=== PATIENT | female | born 1985 | race Two or more races ===

== ENCOUNTER 2025-10-16 17:17 | Emergency (ER) | payer MEDICAID, SELFPAY ==
[2025-10-16 17:18] VITALS: BMI 25.6
[2025-10-16 17:23] VITALS: BP 156/107; PULSE 121; RESP 18; TEMP 36.7; O2SAT 95
[2025-10-16 18:31] VITALS: BP 146/99; PULSE 105; RESP 13; TEMP 36.7; O2SAT 96
--- NOTE | 2025-10-16 18:36 | EKG_ITS ---
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
[2025-10-16 19:07] LABS: Lactate (Lactic Acid) 1.9 mMol/L (0.4-2.0)
[2025-10-16 19:08] LABS: Basophils # (Auto) 0.0 Thou/mm3 (0.0-0.2); Basophils % (Auto) 0 % (0-2.5); Eosinophils # (Auto) 0.1 Thou/mm3 (0.0-0.5); Eosinophils % (Auto) 2 % (0-10); Hematocrit 41.8 % (36.0-46.0); Hemoglobin 14.7 g/dL (12.0-16.0); Immature Granulocytes Auto 0.01 Thou/mm3 (0.00-0.00); Lymphocytes # (Auto) 1.2 Thou/mm3 (1.0-4.8); Lymphocytes % (Auto) 18 % (10-50); Mean Corpuscular HGB Conc 35.2 g/dl (31.0-37.0); Mean Corpuscular Hemoglobin 30.5 pg (25.0-35.0); Mean Corpuscular Volume 87 fL (80-100); Monocytes # (Auto) 0.5 Thou/mm3 (0.0-0.8); Monocytes % (Auto) 8 % (0-12); Neutrophils # (Auto) 4.9 Thou/mm3 (1.8-7.7); Neutrophils % (Auto) 72 % (37-80); Nucleated Red Blood Cell # 0.00 Thou/mm3 (0.00-0.00); Nucleated Red Blood Cell % 0 /100 WBC (0); Platelet Count 259 Thou/mm3 (140-440); RDW Standard Deviation 38.1 fL (36.4-46.3); Red Blood Count 4.82 Miln/mm3 (4.00-5.20); White Blood Count 6.8 Thou/mm3 (3.6-11.0)
[2025-10-16] MEDS: INSULIN NPH 1 UNIT/0.01 ML (PER UNIT) 10 UNIT SC (19:08)
[2025-10-16 19:30] LABS: B-Type Natriuretic Peptide 23 pg/mL (0-100)
[2025-10-16 19:31] LABS: Anion Gap 8 (7-16); BUN/Creatinine Ratio 14 Ratio (12-20); Blood Urea Nitrogen 11 mg/dL (9-23); Calcium 9.1 mg/dL (8.3-10.6); Carbon Dioxide 25.1 mMol/L (20.0-31.0); Chloride 101 mMol/L (98-107); Creatinine (Component) 0.8 mg/dL (0.6-1.3); Estimated Creatinine Clearance 81.0 mL/min (>60); Glucose 261 mg/dL (74-106); Lipase 28 U/L (12-53); Osmolality,Calculated 276 (275-295); Potassium 4.4 mMol/L (3.4-5.1); Sodium 134 mMol/L (136-145); Troponin I < 0.002 ng/mL (0.0-0.045); eGFR > 60 See Note
[2025-10-16] MEDS: SODIUM CHLORIDE 0.9% 1000 ML 1,000 ML 999 ML IV (19:31)
[2025-10-16 19:33] VITALS: BP 125/92; PULSE 99; RESP 27; TEMP 36.7; O2SAT 96
[2025-10-16 20:31] VITALS: BP 131/93; PULSE 95; RESP 25; TEMP 36.8; O2SAT 98
[2025-10-16 21:26] LABS: Collection Type, Urine Clean Catch
[2025-10-16 21:33] LABS: Bilirubin,Urine Negative (Negative); Blood,Urine 3+ (Negative); Clarity,Urine Turbid (Clear/Hazy); Color,Urine Red (Lt Yel-Yel); Glucose, Urine 4+ (Negative); Ketones,Urine Negative (Negative); Leukocyte Esterase,Urine Positive (Negative); Nitrite,Urine Negative (Negative); PH,Urine 7.0 (5.0-7.0); Protein,Urine 1+ (Neg - Trace); RBC,Urine 6358 /hpf (0-3); Specific Gravity,Urine 1.012 (1.001-1.035); Squamous Epithelial Cell,Urine 8 /hpf (0-5); Urobilinogen,Urine Negative mg/dL (0.0-1.0); WBC,Urine 40 /hpf (0-5)
[2025-10-16 23:00] VITALS: BP 123/91; PULSE 90; RESP 23; TEMP 36.8; O2SAT 97
--- NOTE | 2025-10-16 23:48 | EDNOTE_ITS ---
ED Syncope RME/HPI General Chief Complaint: Syncope / Near Syncope Stated Complaint: SYNCOPE Time Seen by Provider: 10/16/25 18:30 Arrival date/time: 10/16/25 17:17 RME / HPI RME / HPI narrative: See [facility] for Dr. Patel's HPI Documentation. Related Data Previous Rx's ?Medication ?Instructions ?Recorded Hydrocodone/Acetaminophen * (NORCO 1 tab PO QDAY PRN P AIN #12 tabs 07/06/17 5/325 *) cefdinir 300 mg capsule 300 mg PO BID 5 days #10 cap s 10/17/25 fluconazole 200 mg tablet 200 mg PO QDAY 5 days #5 tab s 10/17/25 metformin 1,000 mg tablet,extended 1,000 mg PO BID #60 tabs 10/17/25 release 24hr (osmotic) Allergies Allergy/AdvReac Type Severity Reaction Status Date / Time NKA* Allergy Uncoded 10/16/25 17:20 Review of Systems Review of Systems Systems Reviewed: All systems reviewed, normal except as documented Past Medical History Social History SMOKING STATUS: Never smoker ED Exam Narrative Physical exam: See [facility] for Dr. Patel's Physical Exam Documentation. Course Quality Measures none Orders Category Date Time Status Bedside COVID-19 Antigen Test NOW Care 10/16/25 23:50 Completed Bedside Influenza A&B Antigen Test NOW Care 10/16/25 23:[address] Screening NOW Care 10/16/25 23:51 Completed EKG (ED ONLY) *Do not use* NOW Care 10/16/25 18:36 Completed IV [Insert IV] NOW Care 10/16/25 18:[address] abdomen pelvis w con Stat Exams 10/16/25 23:[address] angio chest Stat Exams 10/16/25 23:[address] head/brain wo con Stat Exams 10/16/25 23:51 Completed EKG (ED Only) Stat Exams 10/16/25 18:36 Draft US gall bladder Stat Exams 10/17/25 00:51 Completed US pelvic complete Stat Exams 10/17/25 00:50 Completed XR chest 1V portable Stat Exams 10/16/25 23:51 Completed Alcohol, Blood Medical Stat Lab 10/16/25 23:52 Completed Amylase Stat Lab 10/16/25 23:52 Completed BMP [Basic Metabolic Panel] Stat Lab 10/16/25 18:52 Completed BNP [B-Type Natriuretic Peptide] Stat Lab 10/16/25 18:52 Completed Beta Hydroxybutyrate Stat Lab 10/16/25 23:52 Completed Blood Culture (Lab) Stat Lab 10/16/25 23:52 Received CBC Stat Lab 10/16/25 18:52 Completed CRP [C-Reactive Protein] Stat Lab 10/16/25 23:52 Completed D-Dimer Stat Lab 10/16/25 23:53 Completed ESR [Sed Rate (ESR)] Stat Lab 10/16/25 23:53 Completed HCG,Qualitative Serum Stat Lab 10/16/25 23:52 Completed Hemoglobin A1C [Glycohemoglobin w (eAG)] Stat Lab 10/16/25 23:53 Completed Lactate (Lactic Acid) Stat Lab 10/16/25 18:52 Completed Lactate (Lactic Acid) Stat Lab 10/16/25 23:53 Completed Lipase Stat Lab 10/16/25 18:52 Completed Liver Panel Stat Lab 10/16/25 23:52 Completed Magnesium Stat Lab 10/16/25 23:52 Completed Procalcitonin Stat Lab 10/17/25 00:56 Completed TSH [Thyroid Stimulating Hormone] Stat Lab 10/16/25 23:52 Completed Troponin I Stat Lab 10/16/25 18:52 Completed UA [Urinalysis] Stat Lab 10/16/25 21:19 Completed VBG [Venous Blood Gas] Stat Lab 10/16/25 23:53 Completed Fluconazole [Diflucan] Med 10/17/25 04:04 Discontinued 400 mg PO X1 ONE Insulin Human NPH [NovoLIN N] Med 10/16/25 18:37 Discontinued 10 unit SC X1 ONE Ondansetron Odt [Zofran Odt] Med 10/16/25 18:35 Discontinued 4 mg PO X1 ONE Sodium Chloride 0.9% 1000 ml [Ns] 1,000 ml Med 10/16/25 18:35 Discontinued IV 999 mls/hr cefTRIAXone/D5w 1gm IV premix [Rocephin/D5w 1gm IV Med 10/17/25 03:55 Discontinued premix] 1 g in 50 ml IV X1 Vital Signs Vital signs: Vital Signs Temperature 98.1 F 10/16/25 17:23 Pulse Rate 121 H 10/16/25 17:23 Respiratory Rate 18 10/16/25 17:23 Blood Pressure 156/107 H 10/16/25 17:23 Pulse Oximetry (%) 95 10/16/25 17:23 Oxygen Delivery Method Room Air 10/16/25 17:23 Syncope MDM Narrative MDM Narrative:: This section includes all my notes and documentations, including HPI, PE, and ED course. 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 She felt lightheaded and sat herself down on the floor. Children found her unresponsive and brought her here for care. Currently, patient reports completely normal. No headache or dizziness. No speech or vision impairment. No loss of power in the arms or legs. No chest pain. No other complaints. ROS: All negative except as documented in HPI. Physical Exam: General:? Alert and oriented.? No acute distress.? Eyes:? Conjunctivae and lids clear.? EOMI.? PERRL. ENT:? No signs of head trauma. Neck:? Supple.? No tenderness. Heart:? RRR. Lungs:? No respiratory distress.? Good air movement.? No rhonchi, wheezing, rales.? Chest:? No tenderness. Abdomen:? Soft with equivocal tenderness, difficult to localize.? Normal bowel sounds.? No distension.? No rebound or guarding.? Back:? No tenderness.? Skin:? Warm and dry.? Neuro:? Alert and oriented X 3.? Cranial Nerves II-XII grossly intact.? No herb pheral motor deficits. Musculoskeletal:? All major joints and bones are not tender with no limited ROM. I reviewed all diagnostic test results: My interpretation of the EKG is sinus rhythm. My interpretation of the chest x-ray is: NAD. My review of the Head/Brain CT report is: No acute findings. My review of the Chest CTA report is no PE. My review of the Abdomen/Pelvis CT report is uterine mass. My review of the Pelvic US report is uterine mass. My review of the Gallbladder US report is: Cholelithiasis. Blood tests remarkable for Glu 261, HgbA1C 10.1%. UA showed leukocyte esterase, 6358 RBC, and 40 WBC. At this point, diagnoses include: Syncope with unclear etiology UTI Diabetes Fibroids Gallstones Treatment here included: IVF Regular insulin 10 units SC Zofran 4 mg Rocephin 1 G IV Diflucan 400 mg PO Patient remained stable. Recommended more outpatient workup. Based on my best medical judgment, made decision no further evaluation or treatment indicated at this time. Patient understands and agrees to the discharge instructions customized and printed, see below. Discharge instructions from Dr. Patel: 1. After extensive evaluation, exact cause of your passing out was not deter mined. But there is no immediately life-threatening condition. Such as stroke or brain tumor or heart attack or pulmonary embolism (blood clots in your lungs) or pneumothorax (collapsed lung). 2. You have many significant diagnoses. Including diabetes and urine infection and uterus tumor (fibroids) and gallstones. See attached handouts. 3. Take metformin for your diabetes. 4. Take Cefdinir and Diflucan for urine infection. For good hydration, increase oral fluid and maintain clear urine. If dark or yellow, increase oral fluid. 5. We need to see assistant clinical nurse manager for your uterus tumor. Because it's very large and compressing on other organs. And it can cause severe bleeding. 6. You need gallbladder to help digest fatty foods. So avoid all fatty and oily and greasy and buttery and dairy foods.? This usually means take out and fast food restaurants. 7. See a private doctor on 10/18/2025 for recheck and further care. Ask to review all test results and official radiology reports, to make sure you receive all necessary follow-ups and monitoring, including final urine culture results. Ask for referrals to see assistant clinical nurse manager (for fibroids) and general surgeon (for gallstones). Ask for help with good management of your diabetes. To make sure there is no serious underlying heart condition, ask to help you get more tests for your heart that cannot be done here in the ER. Such as Holter Monitor (cardiac monitoring at home from a day to even a month), heart stress test (on treadmill or with medication), echocardiogram (imaging of your heart structures), heart catherization (checking for blockages in your heart arteries), and a referral to see a Appliance Adjuster. Ask for MRI imaging of the brain and referral to see neurologist (to figure out the cause of passing out). 8. Seek immediate medical care with worsening or with any concerns. Prateek Patel MD Patient data External records reviewed:: [facility] previous records (No prior ED records available for review) Clinical information provided by:: patient Social determinants that could affect healthcare access:: none Patient has the following chronic illnesses:: None reported How is presenting disease/condition affected by chronic disease/condition?: no chronic disease Evaluation data The following diagnostics were reviewed and interpreted by me:: lab results, radiology exam(s) and EKG tracing(s) (My interpretation of the EKG: NSR (103 bpm) with no ST-T changes. ) Lab and/or radiology exams considered but not ordered:: None Interpretation Summary: I reviewed all diagnostic test results: My interpretation of the EKG is sinus rhythm. My interpretation of the chest x-ray is: NAD. My review of the Head/Brain CT report is: No acute findings. My review of the Chest CTA report is no PE. My review of the Abdomen/Pelvis CT report is uterine mass. My review of the Pelvic US report is uterine mass. My review of the Gallbladder US report is: Cholelithiasis. Blood tests remarkable for Glu 261, HgbA1C 10.1%. UA showed leukocyte esterase, 6358 RBC, and 40 WBC. Medications / Prescriptions Medications or Prescriptions considered but not ordered:: None Medication administrations:: Medication Administration History Discontinued Medications Fluconazole (Fluconazole 100 Mg Tablet) 400 mg PO X1 ONE Stop: 10/17/25 04:05 Last Admin: 10/17/25 04:34 Dose: 400 mg Documented By: CVL Sodium Chloride (Ns) 1,000 mls @ 999 mls/hr IV .Q1H1M ONE Stop: 10/16/25 19:35 Last Infusion: 10/16/25 20:32 Dose: Infused Documented By: Admin: 10/16/25 19:31 Dose: 999 mls/hr Documented By: AC Ceftriaxone Sodium/Dextrose (Rocephin/D5w 1gm Iv Premix) 1 g in 50 mls @ 100 mls/hr IV X1 ONE Stop: 10/17/25 04:24 Last Infusion: 10/17/25 04:33 Dose: Infused Documented By: Admin: 10/17/25 04:01 Dose: 100 mls/hr Documented By: CVL Insulin Human NPH (Insulin Nph 1 Unit/0.01 Ml (Per Unit)) 10 unit SC X1 ONE Stop: 10/16/25 18:38 Last Admin: 10/16/25 19:08 Dose: 10 unit Documented By: ANDREA Co-signed By: BUTCH Ondansetron HCl (Ondansetron Odt 4 Mg Tabrap) 4 mg PO X1 ONE; Protocol Stop: 10/16/25 18:36 Last Admin: 10/16/25 19:07 Dose: Not Given Documented By: ANDREA Non-Admin Reason: Patient Refused Treatment here included: IVF Regular insulin 10 units SC Zofran 4 mg Rocephin 1 G IV Diflucan 400 mg PO Consultations Consultation(s) initiated? (list below): No Diagnosis Syncope Differential Diagnosis: syncope due to orthostatic hypotension, vasovagal syncope, pulmonary embolism, dehydration and other (Hyperglycemia) Most likely diagnosis given after review of the tests above:: Syncope UTI (lower urinary tract infection) Diabetes Fibroids Gallstones Admission Indicated Admission indicated?: not indicated Explain why admission is indicated or not indicated:: With significant improvement and no condition needing emergent intervention, there was no indication for admission. Admission Request Was there a request for admission?: No Disposition Plan Disposition Plan: Discharge Discharge Attestation Discharge Attestation: The patient and all family members were given an opportunity to ask questions and understood the discharge instructions. Discharge instructions specifically effects, indications for sooner follow up or return to the emergency department, and the expected course of current diagnosis. Patient condition: Stable Discharge Plan Plan Patient Disposition: HOME (Self Care) Prescriptions/Referrals Prescriptions/Med Rec: New cefdinir 300 mg capsule 300 mg PO BID 5 Days Qty: 10 0RF metformin 1,000 mg tablet extended release 24hr 1,000 mg PO BID Qty: 60 0RF fluconazole 200 mg tablet 200 mg PO QDAY 5 Days Qty: 5 0RF No Action Hydrocodone/Acetaminophen * (NORCO 5/325 *) 1 TAB tablet 1 tab PO QDAY PRN (Reason: PAIN) Qty: 12 0RF Referrals: sAa Rayo MD [Primary Care Provider, Family Practice] - In 1 week Problem List Clinical Impression: Syncope, UTI (lower urinary tract infection), Diabetes, Fibroids, Gallstones Patient/Caregiver Discharge Instructions Discharge Activity: activity as tolerated Education Materials: ED Diabetes- Overview, ED Gallstones with Biliary Colic, ED Fainting, Uncertain Cause, ED Uterine Fibroids, ED CYSTITIS Female Adult Additional Instructions: Instrucciones de mick del Dr. Patel: 1. Tras julio evaluaci?n exhaustiva, no se determin? la causa exacta de au desmayo. Sin embargo, no presenta ninguna afecci?n que ponga en peligro au eryn de forma inmediata, calderon un derrame cerebral, un tumor cerebral, un infarto, julio embolia pulmonar (co?gulos de esteban en los pulmones) o un neumot?rax (colapso pulmonar). 2. Tiene varios diagn?sticos importantes. Entre ellos, diabetes, infecci?n urinaria, tumor uterino (miomas) y c?lculos biliares. Consulte los folletos adjuntos. 3. Nambe metformina para la diabetes. 4. Nambe Cefdinir y Diflucan para la infecci?n urinaria. Para julio buena hidrataci?n, aumente la ingesta de l?quidos y mantenga la orina marichuy. Si est? oscura o amarilla, aumente la ingesta de l?quidos. 5. Debe consultar con un ginec?logo por el tumor uterino. Es muy annika y est? comprimiendo otros ?rganos. Adem?s, puede causar sangrado abundante. 6. Necesita la ves?cula biliar para digerir los alimentos grasos. Por lo tanto, evite todos los alimentos grasos, aceitosos, fritos, con mantequilla y l?cteos. Lavelle generalmente incluye la comida para llevar y la comida r?pida. 7. Consulte con un m?dico privado el 10/18/2025 para julio revisi?n y atenci?n adicional. Solicite revisar todos los resultados de las pruebas y los informes radiol?gicos oficiales para asegurarse de recibir todo el seguimiento y la monitorizaci?n necesarios, incluidos los resultados finales del cultivo de orina. Solicite derivaciones para consultar con un ginec?logo (para los fibromas) y un cirujano general (para los c?lculos biliares). Solicite ayuda para un buen control de au diabetes. Para asegurarse de que no haya ninguna afecci?n card?aldo subyacente grave, solicite que le realicen m?s pruebas card?acas que no se pueden realizar aqu? en la juan de emergencias. Estas pruebas incluyen un monitor Holter (monitorizaci?n card?aldo en casa brenda un d?a o incluso un mes), julio prueba de esfuerzo card?aco (en cinta de correr o con medicaci?n), un ecocardiograma (im?genes de las estructuras del coraz?n), un cateterismo card?aco (para detectar obstrucciones en las arterias coronarias) y julio derivaci?n a un cardi?logo. Solicite julio resonancia magn?nilo del cerebro y julio derivaci?n a un neur?logo (para determinar la causa de los desmayos). 8. Busque atenci?n m?dica inmediata si alexa s?ntomas empeoran o si tiene alguna inquietud. Discharge instructions from Dr. Patel: 1. After extensive evaluation, exact cause of your passing out was not determined. But there is no immediately life-threatening condition. Such as stroke or brain tumor or heart attack or pulmonary embolism (blood clots in your lungs) or pneumothorax (collapsed lung). 2. You have many significant diagnoses. Including diabetes and urine infection and uterus tumor (fibroids) and gallstones. See attached handouts. 3. Take metformin for your diabetes. 4. Take Cefdinir and Diflucan for urine infection. For good hydration, increase oral fluid and maintain clear urine. If dark or yellow, increase oral fluid. 5. We need to see assistant clinical nurse manager for your uterus tumor. Because it's very large and compressing on other organs. And it can cause severe bleeding. 6. You need gallbladder to help digest fatty foods. So avoid all fatty and oily and greasy and buttery and dairy foods.? This usually means take out and fast food restaurants. 7. See a private doctor on 10/18/2025 for recheck and further care. Ask to review all test results and official radiology reports, to make sure you receive all necessary follow-ups and monitoring, including final urine culture results. Ask for referrals to see assistant clinical nurse manager (for fibroids) and general surgeon (for gallstones). Ask for help with good management of your diabetes. To make sure there is no serious underlying heart condition, ask to help you get more tests for your heart that cannot be done here in the ER. Such as Holter Monitor (cardiac monitoring at home from a day to even a month), heart stress test (on treadmill or with medication), echocardiogram (imaging of your heart structures), heart catherization (checking for blockages in your heart arteries), and a referral to see a Appliance Adjuster. Ask for MRI imaging of the brain and referral to see neurologist (to figure out the cause of passing out). 8. Seek immediate medical care with worsening or with any concerns. Print Language: Bulgarian Stand Alone Forms: [employer] Award Info., Patient Portal Info Letter
--- NOTE | 2025-10-16 23:51 | XR_ITS ---
EXAMINATION: AP chest single view TECHNIQUE: AP portable upright chest single view Date and time: October 16, 2025, 11:50 p.m. INDICATIONS: Shortness of breath today. FINDINGS: Normal heart size Lungs are clear. Osseous structures intact IMPRESSION: No active disease
--- NOTE | 2025-10-16 23:51 | XR_ITS ---
Examination: CT brain head without contrast. 2-D sagittal coronal reconstructions Date and time of exam: 10/17/2025 at 2:01 a.m. CTDI: vol (mGy): 50.9 DLP: (mGycm): 961 CLINICAL HISTORY: Syncope, dizziness today Technique: Multiple CT axial sections of the brain have been obtained, 5 mm slice thickness. Contrast has not been administered. 2-D sagittal, coronal reconstructions have been obtained Low dose protocols were performed. One or more of the following dose reduction techniques were used; automated exposure control, adjustment of the mA and/or KV according to patient size, use of iterative reconstruction technique. Findings: Impression: No abnormalities are seen anywhere in the banks or white matter in the cerebrum cerebellum or brainstem. All the visible paranasal sinuses and mastoids appear clear and normal. Ventricular system has a normal CT appearance. Pituitary gland appears normal. No abnormalities are seen in the facial bones or orbits. IMPRESSION: 1. Normal CT head scan
--- NOTE | 2025-10-16 23:51 | XR_ITS ---
Examination: CT abdomen with intravenous contrast CT pelvis with intravenous contrast 2-D coronal reconstructions 2-D sagittal reconstructions Date and time of exam: October 17, 2025, 0202 hours INDICATIONS: Chest pain abdominal pain shortness of breath tachycardia today. CTDI: vol (mGy) 9.41 DLP: (mGycm) 546 6 Technique: Multiple axial sections of the abdomen and pelvis have been obtained. 64 slice high-resolution scanner used. 3 mm axial sections have been obtained, post intravenous injection 100 cc Isovue-370 2-D sagittal, coronal reconstructions obtained. Low dose protocols were performed. One or more of the following dose reduction techniques were used; automated exposure control, adjustment of the mA and/or KV according to patient size, use of iterative reconstruction technique. Findings: No focal liver or splenic lesions No definite gallstones No pancreatic or adrenal mass No renal or ureteral calculi, minimal right hydronephrosis likely related to the pelvic mass Large solid mass arising in the pelvis extending into the abdomen which may represent markedly enlarged uterus, at least 13 x 12 cm Urinary bladder intact No bowel obstruction Osseous structures intact IMPRESSION: Large solid mass arising in the pelvis extending into the abdomen, likely arising from the uterus, recommend transvaginal and transabdominal pelvic sonography follow-up
--- NOTE | 2025-10-16 23:52 | XR_ITS ---
Examination: CTA chest with intravenous contrast 2-D reconstructions 3-D reconstructions, vascular Date and time of exam: October 17 2025, 0202 hours INDICATIONS: Tachycardia shortness of breath hypoxia chest pain today CTDI: vol (mGy) 10.7 DLP: (mGycm) 303 Technique: Multiple axial sections of the thorax have been obtained. 3 mm slice thickness, from below the hemidiaphragms to above the apices of the lungs. Mediastinal and lung density settings have been obtained. 2-D sagittal and coronal reconstructions. 3-D angiographic renderings, 3-D volume renderings, 3D post processing, vascular maximum intensity projections obtained. Contrast administered is 100 cc Isovue-370. Low dose protocols were performed. One or more of the following dose reduction techniques were used; automated exposure control, adjustment of the mA and/or KV according to patient size, use of iterative reconstruction technique. Findings: No thoracic aortic aneurysm dilatation or dissection Pulmonary artery segments are not enlarged. No pulmonary artery filling defects Minor atelectasis in the lower lung zones No lobar pneumonia or pulmonary edema No visualized liver or splenic lesion No gallstones No pancreatic mass Kidneys partially visualized no hydronephrosis Intact osseous structures IMPRESSION: Negative for pulmonary artery emboli No pneumonia or pulmonary edema
--- NOTE | 2025-10-17 00:50 | XR_ITS ---
Examination: Pelvic ultrasound, transabdominal, complete Technique: Transabdominal ultrasound of the pelvis performed using grayscale imaging Date and time of exam: 10/17/2025 at 3:01 a.m. FINDINGS: There is very marked enlargement of the uterus with lobulated contour. Its longitudinal and AP measurements are 13.6 x 9.0 cm. The endometrial cavity measures 2.0 cm in its AP thickness. There is a hypoechoic mass in the posterior superior portion of the uterus measuring 2.7 x 3.8 cm, consistent with a fibroid. There is another hypoechoic nodular mass measuring 4.8 x 4.9 cm in diameter, consistent with another fibroid. There is major bowel gas completely overlapping and obscuring both right and left adnexa. Consequently neither ovary can be visualized no fluid in the cul-de-sac is seen. IMPRESSION: 1. Significantly enlarged uterus with a lobulated contour. It also appears as though the endometrial cavity might be abnormally enlarged. 2. There are at least 2 large hypoechoic fibroids in the uterus. Its overall size and lobulated contour suggests that there are probably additional smaller fibroids 3. See above
--- NOTE | 2025-10-17 00:51 | XR_ITS ---
Examination: Abdomen sonogram, Limited Date and time of exam: October 17, 2025, 0253 hours INDICATIONS: Right upper abdominal pain and tenderness beginning several months ago Technique: Real-time banks scale transabdominal sonographic images of the upper abdomen obtained. Findings: Multiple gallstones Gallbladder wall 0.44 cm Common bile duct 0.46 cm Pancreas obscured by bowel gas Liver 14.6 cm no liver lesions Normal hepatopetal portal venous flow Patent IVC IMPRESSION: Cholelithiasis Thickened gallbladder wall, clinical correlation advised, consider HIDA scan or MRCP follow-up to exclude cholecystitis as clinically warranted
[2025-10-17 01:03] LABS: Base Excess, Venous 2 (-3-3); O2 Saturation, Venous 86 % (96-97); PCO2, Venous 34 mmHg (36-56); PO2, Venous 45 mmHg (15-58); pH, Venous 7.48 (7.33-7.66)
[2025-10-17 01:04] LABS: Lactate (Lactic Acid) 1.3 mMol/L (0.4-2.0)
[2025-10-17 01:09] LABS: Beta Hydroxybutyrate 0.1 mmol/L (<0.6)
[2025-10-17 01:10] LABS: HCG,Qualitative Serum Negative; Sed Rate (ESR) 30 mm/hr (0-20)
[2025-10-17 01:14] LABS: Glucose Estimated Average 243 mg/dL (80-131); Hemoglobin A1C 10.1 % Hgb (4.8-6.0)
[2025-10-17 01:22] LABS: D-Dimer 267 ng/mL (<600)
[2025-10-17 01:46] LABS: Alanine Aminotransferase 8 U/L (10-49); Albumin, Serum 4.2 gm/dL (3.5-5.0); Alcohol, Blood Medical < 3.0 mg/dL (0-10.0); Alkaline Phosphatase 86 U/L (46-116); Amylase 23 U/L (30-118); Aspartate Amino Transferase 15 U/L (0-34); Bilirubin,Direct 0.1 mg/dL (0.0-0.3); Bilirubin,Total 0.4 mg/dL (0.3-1.2); C-Reactive Protein < 0.5 mg/dL (0.0-0.9); Magnesium 1.6 mg/dL (1.6-2.6); Procalcitonin < 0.04 ng/ml (0.0-0.49); Thyroid Stimulating Hormone 2.14 uIU/mL (0.55-4.78); Total Protein 7.2 gm/dL (5.7-8.2)
--- NOTE | 2025-10-17 02:23 | PRELIM_ITS ---
CT scan of the head without intravenous contrast (axial sections with sagittal and coronal reformats). October 17, 2025 0200 hours Clinical History: Syncope Comparison: None Findings: There is no intracranial hemorrhage, extra-axial collection, mass, mass-effect or midline shift. There is good banks-white differentiation. There is no CT evidence of acute large vascular territorial infarct. Ventricles are not enlarged or effaced. Visualized paranasal sinuses and tympanomastoid cavities are clear. The bony calvarium is intact. Impression: No intracranial hemorrhage, mass-effect or midline shift. No CT evidence of acute large vascular territorial infarct. Report Electronically Signed By: Stew Shepard 10/17/2025 2:22:14 AM [EST]
--- NOTE | 2025-10-17 03:26 | PRELIM_ITS ---
CT scan of the abdomen and pelvis with intravenous contrast (axial sections with sagittal and coronal reformats) October 17, 2025 at 0202 hours Clinical History: Abdominal pain Comparison: No prior study is available for comparison. Findings: There is mild right hydroureteronephrosis. No ureteric calculus is seen. The liver, gallbladder, pancreas, spleen and adrenals are unremarkable. No evidence of bowel obstruction. The appendix is within normal limits . The urinary bladder is unremarkable. The uterus is markedly enlarged and demonstrates lobulated contour with multiple fibroids, the largest measuring 12.5 x 11.8 cm. There is no free fluid, free air or abscess. There is bibasilar subsegmental atelectasis. The osseous structures are unremarkable. Impression: 1. Enlarged uterus with lobulated contour and probable multiple fibroids as described; the possibility of neoplastic etiology cannot be excluded. Recommend clinical correlation and further evaluation. Recommend gynecology consultation. 2. Mild right hydroureteronephrosis, likely related to distal ureteric compression from enlarged uterus. 3. Other findings as described above. Please refer to the report on CT angio chest submitted separately. Report Electronically Signed By: Stew Shepard 10/17/2025 3:24:42 AM [EST]
--- NOTE | 2025-10-17 03:36 | PRELIM_ITS ---
CT angiogram of the chest with intravenous contrast (axial sections with sagittal and coronal reformats) October 17, 2025 at 0202 hours Clinical History: Shortness of breath, tachycardia Technique:Helical axial sections with sagittal and coronal reformats of the chest were obtained with intravenous contrast. Iterative reconstruction technique was employed to reduce patient radiation exposure. 3D/MIP reconstructed images were also provided. Comparison: No prior study is available for comparison. Findings: There is no filling defect within the pulmonary artery divisions to suggest pulmonary thromboembolism. The mediastinum demonstrates no evidence of mass or lymphadenopathy. The thoracic aorta is unremarkable. There is no pericardial effusion. Bibasilar atelectasis is seen. No evidence of pleural effusion or pneumothorax. The osseous structures are unremarkable. Impression: No CT evidence of pulmonary thromboembolism or other acute intrathoracic pathology. Other findings as described above. Report on CT abdomen and pelvis to follow. Report Electronically Signed By: Setw Shepard 10/17/2025 3:35:43 AM [EST]
--- NOTE | 2025-10-17 03:46 | PRELIM_ITS ---
Pelvic ultrasound (transabdominal). October 17, 2025 at 0259 hours Clinical history: Pelvic pain Technique: Real-time, grayscale, transabdominal pelvic ultrasound was performed. Comparison: Correlated with the prior CT abdomen and pelvis study performed earlier today. Findings: The uterus is enlarged measuring 13.6 x 9 x 9.4 cm and demonstrates a lobulated contour with multiple fibroids, the largest fibroid measuring 4.9 x 4.8 x 4.1 cm. The endometrium is thickened measuring 2 cm. Both ovaries are not well visualized due to bowel gas and enlarged uterus. There is no free fluid on the submitted images. Impression: Enlarged uterus with lobulated contour and multiple fibroids as described. Thickened uterine endometrium of unclear etiology. Recommend clinical correlation and further evaluation as indicated. Report Electronically Signed By: Jeff Guillaume 10/17/2025 3:46:06 AM [EST]
--- NOTE | 2025-10-17 03:46 | PRELIM_ITS ---
Right upper quadrant abdominal ultrasound. October 17, 2025 at 0253 hours Clinical history: Right upper quadrant tenderness Technique: Grayscale and color flow images of the right upper quadrant are provided. Hepatic and portal veins were also imaged with color flow images. Comparison: Correlated with the prior CT abdomen and pelvis study performed earlier today. Findings: The liver measures 14.6 cm and is normal in echogenicity. No intrahepatic biliary ductal dilatation. The gallbladder is filled with multiple calculi demonstrating distal shadowing. There is probable mild gallbladder wall thickening measuring 4 mm. The common bile duct is normal in caliber at 5 mm. The pancreas is obscured due to bowel gas. Impression: Cholelithiasis with mild gallbladder wall thickening; the possibility of acute cholecystitis cannot be excluded. Recommend clinical correlation. Report on ultrasound pelvis to follow. Report Electronically Signed By: Jeff Guillaume 10/17/2025 3:45:56 AM [EST]
[2025-10-17] MEDS: cefTRIAXone/D5w 1gm IV premix 1 G/50 ML BAG IV (04:01)
[2025-10-17] MEDS: FLUCONAZOLE 100 MG TABLET 400 MG PO (04:34)
[2025-10-17 04:36] VITALS: BP 110/75; PULSE 80; RESP 16; O2SAT 98
== END 2025-10-17 04:40 | disposition home or self-care (01) ==
PROVIDERS: Physician Assistant; Emergency Provider Emergency Medicine; PCP Family Medicine
DX: R55 Syncope and collapse (principal); K80.20 Calculus of gallbladder without cholecystitis without obstruction; D25.9 Leiomyoma of uterus, unspecified; E11.9 Type 2 diabetes mellitus without complications; N39.0 Urinary tract infection, site not specified; R00.0 Tachycardia, unspecified; R42 Dizziness and giddiness; R06.02 Shortness of breath
CPT/HCPCS: 36415; 70450; 71045; 71275; 74177; 76705; 76856; 80048; 80076; 80307; 80320; 81001; 81025; 82010; 82150; 82803; 83036; 83605; 83690; 83735; 83880; 84145; 84443; 84484; 84703; 85025; 85379; 85652; 86140; 87040; 87086; 93005; 96361; 96365; 99284; A4649; J0696; J1815; J7030; Q9967; A9270; G0480